=== PATIENT | male | born 1975 | race Caucasian/White ===

== ENCOUNTER → 2019-10-30 | Outpatient (CLI) | payer BC ==
[~2019-10-30] MED LIST: ASPI81TA86 PO; DRIS50003 PO; FLON1SPR NARES; LAMI1TAB9 PO; MULTCAP PO; ZONE1CAP PO
== END ==
LOC: M RAD 12:34
PROVIDERS: ATTEND Physician Assistant
DX: M79.605 Pain in left leg (principal)

== ENCOUNTER → 2019-11-02 | Outpatient (CLI) | payer BC | LOC: M RAD 10:00 | PROVIDERS: ATTEND Physician Assistant | DX: M79.604 Pain in right leg (principal); M79.605 Pain in left leg; I87.2 Venous insufficiency (chronic) (peripheral); I82.813 Embolism and thrombosis of superficial veins of lower extremities, bilateral ==

== ENCOUNTER 2019-11-04 06:33 | Day surgery (SDC) | payer BC ==
[~2019-11-04] VITALS: Ht 180.3 cm; Wt 152.4 kg
[2019-11-04] MEDS ORDERED: ASPI81TA86 PO (06:52)
[2019-11-04] MEDS ORDERED: FLON1SPR NARES (06:53)
[2019-11-04] MEDS ORDERED: LAMI1TAB9 PO (06:54)
[2019-11-04] MEDS ORDERED: MULTCAP PO (06:55)
[2019-11-04] MEDS ORDERED: DRIS50003 PO (06:56)
[2019-11-04] MEDS ORDERED: ZONE1CAP PO (06:56)
[2019-11-04] MEDS ORDERED: BUPIVACAINE HCL 0.25% 30ML VIAL As Ordered ONE (07:11)
[2019-11-04] MEDS ORDERED: dexameTHASONE 4 MG/ML 1ML VIAL (J1100 PER 1MG) As Ordered ONE (07:56)
[2019-11-04] MEDS ORDERED: LIDOCAINE 2% 100MG/5ML SDV (FOR ANES.) As Ordered ONE (07:56)
[2019-11-04] MEDS ORDERED: SUGAMMADEX SODIUM 500 MG/5 ML VIAL (BRIDION) As Ordered ONE (07:56)
[2019-11-04] MEDS ORDERED: METOCLOPRAMIDE INJ 10MG/2ML VIAL (J2765 PER 1) As Ordered ONE (07:56)
[2019-11-04] MEDS ORDERED: ROCURONIUM BROMIDE 50 MG/5 ML VIAL As Ordered ONE ×3 (07:56→09:25)
[2019-11-04] MEDS ORDERED: ONDANSETRON 4MG/2ML VIAL As Ordered ONE (07:56)
[2019-11-04] MEDS ORDERED: MIDAZOLAM INJ 2MG/2ML VIAL (J2250 PER 1MG) As Ordered ONE (07:56)
[2019-11-04] MEDS ORDERED: propofoL 200 MG/20 ML VIAL As Ordered ONE (07:56)
[2019-11-04] MEDS ORDERED: fentaNYL 250 MCG/5 ML INJECTION (J3010) As Ordered ONE (07:56)
[2019-11-04] MEDS ORDERED: SUCCINYLCHOLINE 100 MG/5 ML SYRINGE (J0330) As Ordered ONE (07:56)
[2019-11-04] MEDS ORDERED: ACETAMINOPHEN 1000MG 100ML IV BTL (OFIRMEV) (J0131 PER 10MG) As Ordered ONE (08:05)
[2019-11-04] MEDS ORDERED: KETOROLAC 60MG 2ML VIAL As Ordered ONE (09:55)
[2019-11-04] MEDS ORDERED: fentaNYL 100 MCG/2 ML INJECTION (J3010) As Ordered ONE (10:17)
[2019-11-04] MEDS: fentaNYL 100 MCG/2 ML INJECTION (J3010) IV PRN ×4 (10:20→10:35)
[2019-11-04] MEDS ORDERED: ONDANSETRON 4MG/2ML VIAL IV PRN (10:30)
[2019-11-04] MEDS ORDERED: LR 1,000 ML IV SCH (10:30)
[2019-11-04] MEDS ORDERED: ACETAMINOPHEN TAB 650MG DOSE (2X325MG) PO PRN (10:45)
[2019-11-04] MEDS ORDERED: IBUPROFEN 600MG TAB PO PRN (10:45)
[2019-11-04] MEDS ORDERED: NORCO, ANEXSIA 5/325MG TABLET (HYDROcodone/ACETAMINOPHEN) PO PRN (10:45)
[2019-11-04 11:55] VITALS: BP 137/78
--- NOTE | 2019-12-24 12:57 | RO ---
DATE OF OPERATION: 11/04/2019 PREOPERATIVE DIAGNOSIS: Incarcerated umbilical hernia. POSTOPERATIVE DIAGNOSIS: Incarcerated umbilical hernia. PROCEDURE: Robotic assisted laparoscopic repair of an incarcerated umbilical hernia with Parietex mesh. Mesh utilized was Parietex reference code [id number], lot number [id number]. SURGEON: Mata Martinez MD HEAD ANIMAL TRAINER: DIOGO Feng. Talita was essential for management of the robotic instruments with change of instruments as needed and passage of sutures and mesh. She also assisted in closure of the wound. ANESTHESIA: General. INDICATION OF THE PROCEDURE: The patient is a 45-year-old man with an incarcerated umbilical hernia for repair. OPERATIVE PROCEDURE: The patient was brought to the operating room and placed on the table in a supine position. He was placed under general endotracheal anesthesia. The patient's abdomen was prepped and draped in a sterile fashion. 25% Marcaine was infiltrated at each of the trocar sites. A short transverse left mid abdominal incision was made at the level of the umbilicus. A Veress needle was inserted; and after positive hanging drop test, the abdomen with inflated with carbon dioxide gas. After achieving adequate insufflation, the Veress needle was removed and an 8 mm port was placed over a 5 mm scope and advanced through the abdominal wall without difficulty. Initial examination showed some omentum adherent up into his umbilical hernia. There were no other intraabdominal adhesions and no obvious abnormalities. Two additional 8 mm robotic trocars were placed, one in the left upper quadrant and one in the left lower quadrant. The patient was tilted slightly to a Trendelenburg position to level the abdomen. The [email or web address] patient cart was brought into position and the endoscope port was docked. Targeting took place on the hernia. A force bipolar and cauterizing scissor were inserted. I then moved to the control console, proceeded with the surgery. The patient was rolled to approximately 8 to 10 degrees right down tilt. The omentum was reduced from within the umbilical hernia by gently teasing this out of the defect. There were no significant adhesions of the omentum into the hernia sac. The defect appeared to be approximately 2.5 cm in diameter. There was some preperitoneal fat along the midline. The peritoneum was scored approximately 3 to 4 cm to left of the midline and a peritoneal flap was developed incorporating the preperitoneal fat. The hernia sac was inverted into the abdomen and stripped from within the hernia and the dissection of the peritoneal flap continued approximately 4 to 5 cm to the right of the midline. The defect was closed longitudinally using a running #1 Statafix suture. I would note that the left upper quadrant trocar inserted was actually a 12 mm port to allow passage of the larger Stratafix suture. The pressure within the abdomen was reduced to approximately 10 mmHg, while the fascia was closed. Once the defect was closed, a 9 mm Parietex patch round in shape was inserted into the abdomen. This was centered over the sutured fascial defect. This was then sutured at its midpoint to the underlying closed defect with a 2-0 V-Loc suture. This was then carried intermediate across the patch and then intermediate around the circumference of the patch suturing this in place along the midline. A second suture was used to complete the circumferential and transverse suturing of the patch. This appeared to nicely apply the patch over the sutured defect with a nice overlap on all sides. The peritoneal flap was then closed with a running suture of 2-0 V-Loc as well. The final inspection showed no evidence of any bleeding with complete coverage of the patch by the peritoneal flap. The left upper quadrant 12 mm port was then partially withdrawn and the internal fascia and peritoneum were approximated with a suture, the tails of which were grasped through the 12 mm port and withdrawn. The insufflation was then stopped and the remaining instruments were removed. The abdomen was deflated and the trocars were removed. The suture placed in the 12 mm site was tied. The skin incisions were then closed with buried 4-0 Vicryl sutures. The patient tolerated the procedure well without apparent complications. He was awakened in the operating, extubated and moved to the recovery room in stable condition. KRISTINA
== END 2019-11-04 12:17 | disposition home or self-care (01) ==
LOC: M SDC 06:33
PROVIDERS: ATTEND Surgery
DX: K42.0 Umbilical hernia with obstruction, without gangrene (principal); J45.909 Unspecified asthma, uncomplicated; G47.30 Sleep apnea, unspecified; I73.9 Peripheral vascular disease, unspecified; Z79.82 Long term (current) use of aspirin; Z79.899 Other long term (current) drug therapy; Z88.1 Allergy status to other antibiotic agents
CPT/HCPCS: 49653; C1781; J0131; J0330; J1100; J1885; J2250; J2405; J2765; J3010

== ENCOUNTER → 2020-03-22 | Outpatient (CLI) | payer BC ==
--- NOTE | 2020-03-22 10:01 | REP ---
INDICATION: VENOUS INSUFFICIENCY (CHRONIC) (PERIPHERAL) COMPARISON: 11/02/2019. TECHNIQUE: Real time compression and duplex Doppler interrogation of the bilateral lower extremity deep venous system is performed. FINDINGS: Bilaterally, the common femoral, superficial femoral and popliteal veins are fully compressible with transducer pressure and demonstrate normal spontaneous and phasic flow, without evidence of deep venous thrombosis. There is nonocclusive thrombus visualized in the right greater saphenous vein which has extended more proximally when compared to the prior study. Blood flow is seen throughout the right greater saphenous vein. There is again nonocclusive thrombus seen throughout the left greater saphenous vein, the superior extent is approximately 2 cm from the saphenofemoral junction. Minimal flow is seen in the mid to distal left greater saphenous vein. IMPRESSION: No evidence of deep venous thrombosis of the bilateral lower extremity femoral popliteal venous system. Nonocclusive thrombus bilateral greater saphenous veins as discussed above. <Electronically signed by Valdemar Loredo > 03/22/20 [id number]
== END ==
LOC: M RAD 08:48
PROVIDERS: ATTEND Physician Assistant
DX: I87.2 Venous insufficiency (chronic) (peripheral) (principal); I83.813 Varicose veins of bilateral lower extremities with pain

== ENCOUNTER → 2021-06-19 | Outpatient (REF) | payer BC ==
[2021-06-19 11:58] LABS: BASO # 0.1 10^3/uL (0.0-0.2); BASO % 1.1 % (0.0-1.0); EOS # 0.1 10^3/uL (0.0-0.5); EOS % 1.1 % (0.0-3.0); HEMATOCRIT 42.6 % (42.0-52.0); HEMOGLOBIN 13.3 g/dl (13.5-17.5); LYMPH # 1.4 10^3/uL (1.5-5.0); LYMPH % 21.1 % (24.0-44.0); MEAN CORPUSCULAR HEMOGLOBIN 29.2 pg (27.0-33.0); MEAN CORPUSCULAR HGB CONC 31.2 g/dl (32.0-36.5); MEAN CORPUSCULAR VOLUME 93.6 fl (80.0-96.0); MONO # 0.6 10^3/uL (0.0-0.8); MONO % 9.3 % (2.0-8.0); NEUTROPHILS # 4.2 10^3/uL (1.5-8.5); NEUTROPHILS % 64.6 % (36.0-66.0); PLATELET COUNT, AUTOMATED 233 10^3/uL (150-450); RED BLOOD COUNT 4.55 10^6/uL (4.30-6.10); WHITE BLOOD COUNT 6.5 10^3/uL (4.0-10.0)
[2021-06-19 12:04] LABS: INR 2.87; PROTHROMBIN TIME 30.4 SECONDS (12.7-14.5)
[2021-06-19 12:05] LABS: PARTIAL THROMBOPLASTIN TIME 43.6 SECONDS (25.9-37.0)
[2021-06-19 12:27] LABS: ALT/SGPT 82 U/L (12-78); BILIRUBIN,TOTAL 0.5 MG/DL (0.2-1.0); BLOOD UREA NITROGEN 19 MG/DL (7-18); C REACTIVE PROTEIN QUANTITATIV 1.32 MG/DL (0.00-0.30); CALCIUM LEVEL 8.3 MG/DL (8.5-10.1); CARBON DIOXIDE LEVEL 27 MEQ/L (21-32); CHLORIDE LEVEL 107 MEQ/L (98-107); CREATININE FOR GFR 1.05 MG/DL (0.70-1.30); GLOMERULAR FILTRATION RATE > 60.0 (>60); GLUCOSE, FASTING 76 MG/DL (70-100); NT-PRO BNP 30 PG/ML (<125); POTASSIUM SERUM 4.4 MEQ/L (3.5-5.1); SODIUM LEVEL 139 MEQ/L (136-145); TOTAL PROTEIN 7.2 GM/DL (6.4-8.2)
[2021-06-19 16:32] LABS: CK-MB VALUE MASS < 1.0 NG/ML (<3.6); CPK CREATINE PHOSPHOKINASE 63 U/L (39-308); MB/CK RELATIVE INDEX 1.59 (< OR =4)
== END ==
LOC: M LAB REF 11:39
PROVIDERS: ATTEND Physician Assistant
DX: I26.09 Other pulmonary embolism with acute cor pulmonale (principal)

== ENCOUNTER → 2021-06-26 | Outpatient (REF) | payer BC ==
[2021-06-26 17:59] LABS: APPEARANCE, URINE CLEAR (CLEAR); BACTERIA, URINE AUTO NEGATIVE (NEGATIVE); BILIRUBIN, URINE AUTO NEGATIVE (NEGATIVE); BLOOD, URINE BLOOD 1+ (NEGATIVE); COLOR, URINE YELLOW (YELLOW); GLUCOSE, URINE (UA) AUTO NEGATIVE (NEGATIVE); KETONE, URINE AUTO NEGATIVE (NEGATIVE); LEUKOCYTE ESTERASE, URINE AUTO NEGATIVE (NEGATIVE); NITRITE, URINE AUTO NEGATIVE (NEGATIVE); PROTEIN, URINE AUTO NEGATIVE (NEGATIVE); RBC, URINE AUTO 3 /HPF (0-3); SQUAMOUS EPITHELIAL CELL UR AU 0 /HPF (0-6); UROBILINOGEN, URINE AUTO 0.2 mg/dL (0.0-2.0); WBC, URINE AUTO 0 /HPF (0-3)
== END ==
LOC: M LAB REF 16:53
PROVIDERS: ATTEND Physician Assistant
DX: R31.9 Hematuria, unspecified (principal)

== ENCOUNTER → 2021-06-29 | Outpatient (CLI) | payer BC ==
[2021-06-29 17:05] LABS: BASO # 0.1 10^3/uL (0.0-0.2); BASO % 0.9 % (0.0-1.0); EOS # 0.1 10^3/uL (0.0-0.5); EOS % 1.3 % (0.0-3.0); HEMATOCRIT 41.4 % (42.0-52.0); HEMOGLOBIN 13.3 g/dl (13.5-17.5); LYMPH # 1.7 10^3/uL (1.5-5.0); LYMPH % 22.1 % (24.0-44.0); MEAN CORPUSCULAR HEMOGLOBIN 29.5 pg (27.0-33.0); MEAN CORPUSCULAR HGB CONC 32.1 g/dl (32.0-36.5); MEAN CORPUSCULAR VOLUME 91.8 fl (80.0-96.0); MONO # 0.7 10^3/uL (0.0-0.8); NEUTROPHILS # 5.1 10^3/uL (1.5-8.5); NEUTROPHILS % 65.8 % (36.0-66.0); PLATELET COUNT, AUTOMATED 200 10^3/uL (150-450); RED BLOOD COUNT 4.51 10^6/uL (4.30-6.10); WHITE BLOOD COUNT 7.8 10^3/uL (4.0-10.0)
[2021-06-29 17:17] LABS: INR 2.58
[2021-06-29 17:18] LABS: PARTIAL THROMBOPLASTIN TIME 52.3 SECONDS (25.9-37.0)
[2021-06-29 17:21] LABS: ALBUMIN 4.2 GM/DL (3.2-5.2); ALT/SGPT 50 U/L (12-78); BILIRUBIN,TOTAL 0.4 MG/DL (0.2-1.0); BLOOD UREA NITROGEN 15 MG/DL (7-18); C REACTIVE PROTEIN QUANTITATIV 1.62 MG/DL (0.00-0.30); CALCIUM LEVEL 9.3 MG/DL (8.5-10.1); CARBON DIOXIDE LEVEL 25 MEQ/L (21-32); CHLORIDE LEVEL 108 MEQ/L (98-107); CREATININE FOR GFR 0.77 MG/DL (0.70-1.30); GLOMERULAR FILTRATION RATE > 60.0 (>60); GLUCOSE, FASTING 83 MG/DL (70-100); LDH LACTATE DEHYDROGENASE 187 U/L (87-241); POTASSIUM SERUM 3.8 MEQ/L (3.5-5.1); SODIUM LEVEL 140 MEQ/L (136-145); TOTAL PROTEIN 7.2 GM/DL (6.4-8.2)
== END ==
LOC: M PLALAB 15:08
PROVIDERS: ATTEND Internal Medicine Hematology
DX: I26.99 Other pulmonary embolism without acute cor pulmonale (principal)

== ENCOUNTER → 2021-06-30 | Outpatient (REF) | payer BC | LOC: M SFHCPLAZ 13:12 | PROVIDERS: ATTEND Internal Medicine Hematology | DX: I26.99 Other pulmonary embolism without acute cor pulmonale (principal) ==

== ENCOUNTER → 2021-07-21 | Outpatient (CLI) | payer BC ==
[2021-07-21 10:19] LABS: INR 2.3; PROTHROMBIN TIME 25.7 SECONDS (12.7-14.5)
== END ==
LOC: M PLALAB 07:31
PROVIDERS: ATTEND Family Medicine
DX: Z51.81 Encounter for therapeutic drug level monitoring (principal); Z79.01 Long term (current) use of anticoagulants

== ENCOUNTER → 2021-08-04 | Outpatient (CLI) | payer BC ==
[2021-08-04 13:27] LABS: INR 2.05; PROTHROMBIN TIME 23.5 SECONDS (12.7-14.5)
== END ==
LOC: M PLALAB 10:41
PROVIDERS: ATTEND Family Medicine
DX: Z79.01 Long term (current) use of anticoagulants (principal)

== ENCOUNTER → 2021-08-18 | Outpatient (CLI) | payer BC ==
[2021-08-18 14:12] LABS: INR 1.95; PROTHROMBIN TIME 22.6 SECONDS (12.7-14.5)
== END ==
LOC: M PLALAB 09:48
PROVIDERS: ATTEND Family Medicine
DX: Z51.81 Encounter for therapeutic drug level monitoring (principal); Z79.01 Long term (current) use of anticoagulants

== ENCOUNTER → 2021-09-01 | Outpatient (CLI) | payer BC ==
[2021-09-01 13:30] LABS: INR 2.12; PROTHROMBIN TIME 24.1 SECONDS (12.7-14.5)
== END ==
LOC: M PLALAB 09:37
PROVIDERS: ATTEND Physician Assistant
DX: Z79.01 Long term (current) use of anticoagulants (principal)

== ENCOUNTER → 2021-10-04 | Outpatient (CLI) | payer BC ==
[2021-10-04 15:38] LABS: INR 2.18; PROTHROMBIN TIME 24.6 SECONDS (12.7-14.5)
== END ==
LOC: M PLALAB 09:15
PROVIDERS: ATTEND Physician Assistant
DX: Z79.01 Long term (current) use of anticoagulants (principal)

== ENCOUNTER → 2021-10-13 | Outpatient (CLI) | payer BC ==
[2021-10-13 11:02] LABS: BASO # 0.1 10^3/uL (0.0-0.2); BASO % 0.8 % (0.0-1.0); EOS # 0.1 10^3/uL (0.0-0.5); EOS % 1.7 % (0.0-3.0); HEMATOCRIT 41.9 % (42.0-52.0); HEMOGLOBIN 13.4 g/dl (13.5-17.5); LYMPH # 1.6 10^3/uL (1.5-5.0); MEAN CORPUSCULAR HEMOGLOBIN 29.4 pg (27.0-33.0); MEAN CORPUSCULAR VOLUME 91.9 fl (80.0-96.0); MONO # 0.4 10^3/uL (0.0-0.8); MONO % 6.8 % (2.0-8.0); NEUTROPHILS # 4.2 10^3/uL (1.5-8.5); PLATELET COUNT, AUTOMATED 190 10^3/uL (150-450); RED BLOOD COUNT 4.56 10^6/uL (4.30-6.10); WHITE BLOOD COUNT 6.5 10^3/uL (4.0-10.0)
[2021-10-13 11:27] LABS: ALBUMIN 3.6 GM/DL (3.2-5.2); ALT/SGPT 43 U/L (12-78); BILIRUBIN,TOTAL 0.3 MG/DL (0.2-1.0); BLOOD UREA NITROGEN 17 MG/DL (7-18); CALCIUM LEVEL 8.7 MG/DL (8.5-10.1); CARBON DIOXIDE LEVEL 25 MEQ/L (21-32); CHLORIDE LEVEL 109 MEQ/L (98-107); CHOLESTEROL LEVEL 149 MG/DL (<200); CHOLESTEROL RISK RATIO 4.257 (<5); CREATININE FOR GFR 0.83 MG/DL (0.70-1.30); GLOMERULAR FILTRATION RATE > 60.0 (>60); GLUCOSE, FASTING 130 MG/DL (70-100); HDL CHOLESTEROL 35 MG/DL (>40); LDL CHOLESTEROL 80 MG/DL (<100); NON-HDL-C 114 MG/DL; POTASSIUM SERUM 3.8 MEQ/L (3.5-5.1); SODIUM LEVEL 141 MEQ/L (136-145); TOTAL PROTEIN 7.2 GM/DL (6.4-8.2); TRIGLYCERIDES LEVEL 172 MG/DL (<150)
[2021-10-13 11:40] LABS: HEMOGLOBIN A1c 5.4 %
== END ==
LOC: M PLALAB 07:30
PROVIDERS: ATTEND Family Medicine
DX: E66.01 Morbid (severe) obesity due to excess calories (principal); I10 Essential (primary) hypertension

== ENCOUNTER → 2021-11-03 | Outpatient (CLI) | payer BC ==
[2021-11-03 14:08] LABS: INR 1.82; PROTHROMBIN TIME 21.5 SECONDS (12.7-14.5)
== END ==
LOC: M PLALAB 09:43
PROVIDERS: ATTEND Family Medicine
DX: I26.09 Other pulmonary embolism with acute cor pulmonale (principal); Z79.01 Long term (current) use of anticoagulants

== ENCOUNTER → 2021-11-15 | Outpatient (CLI) | payer BC ==
[2021-11-15 16:15] LABS: INR 2.06; PROTHROMBIN TIME 23.6 SECONDS (12.7-14.5)
== END ==
LOC: M PLALAB 14:21
PROVIDERS: ATTEND Family Medicine
DX: I82.811 Embolism and thrombosis of superficial veins of right lower extremity (principal); Z79.01 Long term (current) use of anticoagulants

== ENCOUNTER → 2021-12-08 | Outpatient (CLI) | payer BC ==
[2021-12-08 16:01] LABS: INR 2.29; PROTHROMBIN TIME 25.6 SECONDS (12.7-14.5)
== END ==
LOC: M PLALAB 13:05
PROVIDERS: ATTEND Family Medicine
DX: I26.09 Other pulmonary embolism with acute cor pulmonale (principal); Z79.01 Long term (current) use of anticoagulants

== ENCOUNTER → 2022-01-24 | Outpatient (CLI) | payer BC ==
[2022-01-24 17:22] LABS: HEMATOCRIT 43.5 % (42.0-52.0); HEMOGLOBIN 13.7 g/dl (13.5-17.5); MEAN CORPUSCULAR HEMOGLOBIN 29.7 pg (27.0-33.0); MEAN CORPUSCULAR HGB CONC 31.5 g/dl (32.0-36.5); MEAN CORPUSCULAR VOLUME 94.4 fl (80.0-96.0); PLATELET COUNT, AUTOMATED 198 10^3/uL (150-450); RED BLOOD COUNT 4.61 10^6/uL (4.30-6.10); WHITE BLOOD COUNT 9.3 10^3/uL (4.0-10.0)
== END ==
LOC: M PLALAB 15:57
PROVIDERS: ATTEND Internal Medicine Hematology
DX: I26.99 Other pulmonary embolism without acute cor pulmonale (principal)